=== PATIENT | female | born 2000 | race Caucasian/White ===

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

== ENCOUNTER 2019-04-02 14:02 | Outpatient (CLI) | payer OTHER ==
[~2019-04-02 14:02] MED LIST: METOCLOPRAMIDE10 MG PO; PEPCID AC20 MG PO
== END 2019-04-02 14:29 | disposition home or self-care (01) ==
LOC: TOM 14:02
DX: H92.01 Otalgia, right ear (principal); R07.0 Pain in throat; R68.89 Other general symptoms and signs; J01.90 Acute sinusitis, unspecified; J01.80 Other acute sinusitis